=== PATIENT | female | born 1960 | race African-American/Black ===

== ENCOUNTER 2017-11-22 12:19 | Observation (INO) ==
[2017-11-22] MEDS ORDERED: FUROSEMIDE 40 MG/4 ML VIAL IV STA (12:40)
[2017-11-22] MEDS ORDERED: ALBUTEROL/IPRATROPIUM 3 ML NEB RESP TX STA (12:41)
[2017-11-22 13:12] LABS: Basophils % 0.7 % (0.0-0.8); Hematocrit 39.4 VOL% (35.7-47.0); Hemoglobin 12.3 GM/DL (12.0-16.0); Immature Granulocytes % 0.7 %; Immature Granulocytes Absolute 0.03 #; Lymphocytes # 0.9 10*3/uL (1.4-4.0); Mean Corpuscular HGB Conc 31.2 GM/DL (32-36); Mean Corpuscular Hemoglobin 25 PG (27-34); Mean Corpuscular Volume 79.1 FL (87-102); Mean Platelet Volume 11.2 FL (9.6-12.0); Monocytes # 0.6 10*3/uL (0.11-0.8); Monocytes % 13.1 % (1.7-12.7); Neutrophils # 2.8 10*3/uL (1.4-7.4); Neutrophils % 65.5 % (38.7-73.9); Platelet Count 204 T/CUMM (130-400); Red Blood Count 4.98 MC/CUMM (3.8-5.5); Red Cell Distribution Width 20.3 % (9.3-17.3); White Blood Count 4.3 T/CUMM (4-12)
[2017-11-22 13:44] LABS: Albumin 2.8 G/DL (3.4-5.0); Bilirubin,Total 0.8 MG/DL (0.2-1.0); Calcium 8.6 MG/DL (8.5-10.1); Potassium 2.8 MMOL/L (3.5-5.1); Total Protein 8.2 G/DL (6.4-8.3)
[2017-11-22 13:49] LABS: INR 1.6; PT Patient Result 16.9 SECS
[2017-11-22] MEDS ORDERED: POTASSIUM CHLORIDE 20 MEQ TABLET PO STA (14:03)
[2017-11-22] MEDS ORDERED: DILTIAZEM 50 MG/10 ML VIAL IV STA ×2 (14:35→15:38)
[2017-11-22] MEDS ORDERED: DILTIAZEM 25 MG/5 ML VIAL IV ONE (15:35)
[2017-11-22] MEDS ORDERED: ONDANSETRON 4 MG/2 ML VIAL IV PRN (15:38)
[2017-11-22] MEDS ORDERED: ACETAMINOPHEN 325 MG TABLET PO PRN (15:38)
[2017-11-22] MEDS ORDERED: ALBUTEROL/IPRATROPIUM 3 ML NEB RESP TX PRN (15:40)
[2017-11-22] MEDS ORDERED: DILTIAZEM 25 MG/5 ML VIAL IV STA (15:45)
[2017-11-22] MEDS ORDERED: ALBUTEROL 2.5 MG/3 ML NEB RESP TX PRN (15:47)
[2017-11-22] MEDS ORDERED: CARISOPRODOL 350 MG TABLET PO PRN (15:47)
[2017-11-22 16:17] LABS: Lactic Acid 2.9 MMOL/L (0.4-2.0)
[2017-11-22] MEDS ORDERED: DILTIAZEM 50 MG/10 ML VIAL IV PRN (16:58)
[2017-11-22] MEDS ORDERED: WARFARIN 7.5 MG TABLET PO SCH (18:00)
[2017-11-22] MEDS: ENOXAPARIN 100 MG/ML SYRINGE SUBCUT SCH (18:05)
[2017-11-22] MEDS: POTASSIUM CHLORIDE 20 MEQ TABLET PO PRN ×2 (18:05→21:48)
[2017-11-22] MEDS: ASPIRIN EC 81 MG TABLET PO SCH (18:05)
[2017-11-22 18:18] LABS: Apearance,Urine Slightly Hazy (Clear); Bilirubin,Urine Negative (Negative); Blood, Urine Negative (Negative); Glucose,Urine (UA) Negative (Negative); Hyaline Casts,Urine 2 /LPF (0-3); Ketones,Urine Negative (Negative); Nitrite,Urine Negative (Negative); Protein,Urine Negative; RBC,Urine 4 /HPF (0-4); Squamous Epithelial Cell,Urine Occasional /HPF (0-10); Urine Color Yellow (Yellow); Urine Specific Gravity 1.005 (1.001-1.035); Urine Urobilinogen < 2.0 EU/DL (0.2-1.0); WBC,Urine 11 /HPF (0-6)
[2017-11-22] MEDS: BUDESONIDE 0.5 MG/2 ML NEB RESP TX SCH (19:06)
[2017-11-22] MEDS: FUROSEMIDE 40 MG TABLET PO SCH (21:48)
[2017-11-23] MEDS: POTASSIUM CHLORIDE 20 MEQ TABLET PO PRN ×3 (00:23→05:42)
[2017-11-23 04:16] LABS: INR 1.7; PT Patient Result 17.4 SECS
[2017-11-23 04:23] LABS: Basophils % 0.6 % (0.0-0.8); Eosinophils % 0.8 % (0.00-10.9); Hematocrit 37.2 VOL% (35.7-47.0); Hemoglobin 11.8 GM/DL (12.0-16.0); Immature Granulocytes % 0.8 %; Immature Granulocytes Absolute 0.04 #; Lymphocytes # 1.4 10*3/uL (1.4-4.0); Lymphocytes % 28.1 % (21.3-54.2); Mean Corpuscular HGB Conc 31.7 GM/DL (32-36); Mean Corpuscular Hemoglobin 25 PG (27-34); Mean Corpuscular Volume 77.8 FL (87-102); Mean Platelet Volume 11.8 FL (9.6-12.0); Monocytes # 0.7 10*3/uL (0.11-0.8); Monocytes % 14.6 % (1.7-12.7); Neutrophils # 2.7 10*3/uL (1.4-7.4); Neutrophils % 55.1 % (38.7-73.9); Platelet Count 204 T/CUMM (130-400); Red Blood Count 4.78 MC/CUMM (3.8-5.5); Red Cell Distribution Width 20.3 % (9.3-17.3); White Blood Count 4.8 T/CUMM (4-12)
[2017-11-23 04:51] LABS: Calcium 8.1 MG/DL (8.5-10.1); Thyroid Stimulating Hormone 1.3 uIU/ml (0.358-3.74)
[2017-11-23] MEDS: ENOXAPARIN 100 MG/ML SYRINGE SUBCUT SCH (05:42)
[2017-11-23] MEDS: BUDESONIDE 0.5 MG/2 ML NEB RESP TX SCH (07:42)
[2017-11-23] MEDS ORDERED: cefTRIAXone 1,000 MG in SYRINGE 1 EACH IV SCH (08:00)
[2017-11-23] MEDS ORDERED: POTASSIUM CHLORIDE 20 MEQ TABLET PO SCH ×2 (09:00)
[2017-11-23] MEDS ORDERED: cloNIDine 0.1 MG TABLET PO SCH (09:00)
[2017-11-23] MEDS ORDERED: DILTIAZEM CD 180 MG CAPSULE PO SCH (09:00)
[2017-11-23] MEDS ORDERED: AMIODARONE 200 MG TABLET PO SCH (09:00)
[2017-11-23] MEDS ORDERED: PANTOPRAZOLE 40 MG TABLET PO SCH (09:00)
[2017-11-23] MEDS ORDERED: predniSONE 20 MG TABLET PO SCH (09:00)
[2017-11-23] MEDS: ASPIRIN EC 81 MG TABLET PO SCH (09:48)
[2017-11-23] MEDS: FUROSEMIDE 40 MG TABLET PO SCH (09:48)
[2017-11-23 12:22] VITALS: BP 146/92
[2017-11-23] MEDS ORDERED: WARFARIN 10 MG TABLET PO SCH (18:00)
== END 2017-11-23 15:53 | disposition home health service (06) ==
LOC: N.ED 12:19 → N.EDINP 12:19 → N.2W 16:37 → N.TELES 17:28
PROVIDERS: ADMIT Internal Medicine; ATTEND Internal Medicine

== ENCOUNTER 2017-11-30 15:35 | Inpatient (IN) ==
[2017-11-30] MEDS ORDERED: methylPREDNISolone SOD SUC 125 MG/2 ML VIAL IV STA (16:03)
[2017-11-30] MEDS ORDERED: DILTIAZEM 50 MG/10 ML VIAL IV STA (16:03)
[2017-11-30] MEDS ORDERED: AZITHROMYCIN INJ 500 MG in SODIUM CHLORIDE 0.9% 250 ML IV STA (16:03)
[2017-11-30] MEDS ORDERED: FUROSEMIDE 100 MG/10 ML VIAL IV STA (16:03)
[2017-11-30] MEDS ORDERED: ONDANSETRON 4 MG/2 ML VIAL IV STA (16:03)
[2017-11-30 16:20] LABS: Hematocrit 39.8 VOL% (35.7-47.0); Hemoglobin 12.3 GM/DL (12.0-16.0); Immature Granulocytes % 1.8 %; Immature Granulocytes Absolute 0.07 #; Lymphocytes # 0.9 10*3/uL (1.4-4.0); Lymphocytes % 23.2 % (21.3-54.2); Mean Corpuscular HGB Conc 30.9 GM/DL (32-36); Mean Corpuscular Hemoglobin 25 PG (27-34); Mean Corpuscular Volume 79.3 FL (87-102); Mean Platelet Volume 11.3 FL (9.6-12.0); Monocytes # 0.8 10*3/uL (0.11-0.8); Monocytes % 20.9 % (1.7-12.7); Neutrophils # 2.1 10*3/uL (1.4-7.4); Neutrophils % 53.1 % (38.7-73.9); Platelet Count 203 T/CUMM (130-400); Red Blood Count 5.02 MC/CUMM (3.8-5.5); Red Cell Distribution Width 20.9 % (9.3-17.3); White Blood Count 3.9 T/CUMM (4-12)
[2017-11-30] MEDS ORDERED: ALBUTEROL 2.5 MG/3 ML NEB RESP TX SCH (16:30)
[2017-11-30 16:31] LABS: INR 1.5; PT Patient Result 16.1 SECS; Partial Thromboplastin Time 36.6 SECS (0-40)
[2017-11-30 16:41] LABS: Hypochromasia 1+; Lymphocytes 18 % (20-55); Platelet Estimate Adequate; Segmented Neutrophils 61 % (50-85); Total Cells Counted 100
[2017-11-30 16:43] LABS: Alanine Aminotransferase 23 U/L (13-56); Albumin 2.8 G/DL (3.4-5.0); Alkaline Phosphatase 176 U/L (45-117); Aspartate Amino Transferase 28 U/L (0-37); Blood Urea Nitrogen 8 MG/DL (7-18); Calcium 8.5 MG/DL (8.5-10.1); Glucose 97 MG/DL (74-106); Osmolality,Calculated 274.5 MOS/KG (273-304); Potassium 3.4 MMOL/L (3.5-5.1); Sodium 139 MMOL/L (136-145); Total Protein 8.4 G/DL (6.4-8.3); Troponin I 0.027 NG/ML (0.00-0.045)
[2017-11-30] MEDS ORDERED: DILTIAZEM 25 MG/5 ML VIAL IV STA (17:25)
[2017-11-30] MEDS ORDERED: ACETAMINOPHEN 325 MG TABLET PO PRN (17:57)
[2017-11-30] MEDS ORDERED: ONDANSETRON 4 MG/2 ML VIAL IV PRN (17:57)
[2017-11-30] MEDS ORDERED: ALBUTEROL 2.5 MG/3 ML NEB RESP TX PRN (17:59)
[2017-11-30] MEDS ORDERED: CARISOPRODOL 350 MG TABLET PO PRN (17:59)
[2017-11-30] MEDS: ALBUTEROL/IPRATROPIUM 3 ML NEB RESP TX SCH (20:30)
[2017-11-30] MEDS: BUDESONIDE 0.25 MG/2 ML NEB RESP TX SCH (20:30)
[2017-11-30] MEDS: WARFARIN 10 MG TABLET PO SCH (21:12)
[2017-12-01] MEDS: ALBUTEROL/IPRATROPIUM 3 ML NEB RESP TX SCH ×4 (00:08→19:23)
[2017-12-01] MEDS ORDERED: METOPROLOL TARTRATE 5 MG/5 ML VIAL IV ONE (03:36)
[2017-12-01 04:30] LABS: Hemoglobin 12.2 GM/DL (12.0-16.0); Immature Granulocytes % 1.2 %; Immature Granulocytes Absolute 0.03 #; Lymphocytes # 0.3 10*3/uL (1.4-4.0); Lymphocytes % 11.6 % (21.3-54.2); Mean Corpuscular HGB Conc 31.3 GM/DL (32-36); Mean Corpuscular Hemoglobin 25 PG (27-34); Mean Corpuscular Volume 78.3 FL (87-102); Mean Platelet Volume 11.5 FL (9.6-12.0); Monocytes % 1.6 % (1.7-12.7); NRBC # 0.02 10*3/uL; Neutrophils # 2.2 10*3/uL (1.4-7.4); Neutrophils % 85.6 % (38.7-73.9); Platelet Count 203 T/CUMM (130-400); Red Blood Count 4.98 MC/CUMM (3.8-5.5); Red Cell Distribution Width 20.6 % (9.3-17.3); White Blood Count 2.5 T/CUMM (4-12)
[2017-12-01 04:47] LABS: Calcium 8.2 MG/DL (8.5-10.1); Osmolality,Calculated 281.3 MOS/KG (273-304); Potassium 3.6 MMOL/L (3.5-5.1)
[2017-12-01] MEDS: BUDESONIDE 0.25 MG/2 ML NEB RESP TX SCH ×2 (07:06→19:23)
[2017-12-01] MEDS: FUROSEMIDE 40 MG/4 ML VIAL IV SCH ×2 (08:20→16:00)
[2017-12-01 08:33] LABS: ABG Base Excess 1.8 MMOL/L (-2.5-2.5); ABG HCO3 24.4 MMOL/L (20-26); ABG Oxygen Saturation 17.6 % (95-100); ABG PCO2 59.4 MM HG (35-48); ABG PH 7.307 (7.35-7.45); ABG TCO2 27.2 MMOL/L (23-27)
[2017-12-01 08:35] LABS: ABG PO2 19.3 MM HG (80-95)
[2017-12-01] MEDS ORDERED: AMIODARONE 200 MG TABLET PO SCH (09:00)
[2017-12-01] MEDS ORDERED: cloNIDine 0.1 MG TABLET PO SCH (09:00)
[2017-12-01 09:04] LABS: ABG Base Excess 1.3 MMOL/L (-2.5-2.5); ABG HCO3 25.1 MMOL/L (20-26); ABG Oxygen Saturation 77.4 % (95-100); ABG PO2 48.4 MM HG (80-95); ABG TCO2 24.1 MMOL/L (23-27)
[2017-12-01] MEDS: POTASSIUM CHLORIDE 20 MEQ TABLET PO SCH (09:42)
[2017-12-01] MEDS: ASPIRIN EC 81 MG TABLET PO SCH (09:42)
[2017-12-01] MEDS: PANTOPRAZOLE 40 MG TABLET PO SCH (09:42)
[2017-12-01] MEDS: methylPREDNISolone SOD SUC 125 MG/2 ML VIAL IV SCH ×2 (09:43→16:50)
[2017-12-01] MEDS: DILTIAZEM CD 180 MG CAPSULE PO SCH (09:43)
[2017-12-01] MEDS ORDERED: hydrALAZINE 20 MG/1 ML VIAL IV PRN (11:33)
[2017-12-01] MEDS ORDERED: DILTIAZEM 50 MG/10 ML VIAL IV ONE (13:02)
[2017-12-01] MEDS ORDERED: ENOXAPARIN 80 MG/0.8 ML SYRINGE SUBCUT SCH (15:00)
[2017-12-01] MEDS: HEPARIN DRIP 25,000 UNITS/500 ML PREMIX IV SCH (16:00)
[2017-12-01] MEDS: METOPROLOL TARTRATE 25 MG TABLET PO SCH ×2 (16:25→23:31)
[2017-12-01] MEDS: WARFARIN 10 MG TABLET PO SCH (18:29)
[2017-12-01] MEDS: cloNIDine 0.1 MG TABLET PO SCH (21:33)
[2017-12-01] MEDS: DOCUSATE SODIUM 100 MG CAPSULE PO SCH (21:37)
[2017-12-01 22:16] LABS: INR 1.9; PT Patient Result 19.7 SECS
[2017-12-01 22:26] LABS: Partial Thromboplastin Time 71.7 SECS (0-40)
[2017-12-02] MEDS: ALBUTEROL/IPRATROPIUM 3 ML NEB RESP TX SCH ×4 (00:10→19:07)
[2017-12-02] MEDS: methylPREDNISolone SOD SUC 125 MG/2 ML VIAL IV SCH ×3 (01:39→17:00)
[2017-12-02] MEDS: METOPROLOL TARTRATE 25 MG TABLET PO SCH (05:09)
[2017-12-02 06:01] LABS: Hematocrit 39.3 VOL% (35.7-47.0); Hemoglobin 12.3 GM/DL (12.0-16.0); Immature Granulocytes % 0.7 %; Immature Granulocytes Absolute 0.04 #; Lymphocytes # 0.5 10*3/uL (1.4-4.0); Lymphocytes % 8.9 % (21.3-54.2); Mean Corpuscular HGB Conc 31.3 GM/DL (32-36); Mean Corpuscular Hemoglobin 24 PG (27-34); Mean Platelet Volume 11.6 FL (9.6-12.0); Monocytes # 0.3 10*3/uL (0.11-0.8); Monocytes % 5.7 % (1.7-12.7); NRBC # 0.08 10*3/uL; Neutrophils % 84.7 % (38.7-73.9); Platelet Count 197 T/CUMM (130-400); Red Blood Count 5.04 MC/CUMM (3.8-5.5); Red Cell Distribution Width 21.1 % (9.3-17.3); White Blood Count 5.9 T/CUMM (4-12)
[2017-12-02 06:09] LABS: INR 2.4
[2017-12-02 06:18] LABS: PT Patient Result 24.4 SECS; Partial Thromboplastin Time 80.9 SECS (0-40)
[2017-12-02 06:26] LABS: Calcium 7.7 MG/DL (8.5-10.1); Calcium 8.2 MG/DL (8.5-10.1); Osmolality,Calculated 280.8 MOS/KG (273-304); Osmolality,Calculated 281.7 MOS/KG (273-304); Potassium 4.9 MMOL/L (3.5-5.1)
[2017-12-02] MEDS: BUDESONIDE 0.25 MG/2 ML NEB RESP TX SCH ×2 (07:49→19:07)
[2017-12-02] MEDS: DEXTROSE 5% NACL 0.9% 1,000 ML IV SCH (07:50)
[2017-12-02 07:56] LABS: ABG Base Excess -1.7 MMOL/L (-2.5-2.5); ABG HCO3 22.9 MMOL/L (20-26); ABG Oxygen Saturation 93.7 % (95-100); ABG PCO2 40.7 MM HG (35-48); ABG PH 7.369 (7.35-7.45); ABG PO2 79.7 MM HG (80-95); ABG TCO2 20.8 MMOL/L (23-27)
[2017-12-02] MEDS: FUROSEMIDE 40 MG/4 ML VIAL IV SCH (08:15)
[2017-12-02] MEDS: POTASSIUM CHLORIDE 20 MEQ TABLET PO SCH (09:00)
[2017-12-02] MEDS: cloNIDine 0.1 MG TABLET PO SCH ×2 (09:40→21:26)
[2017-12-02] MEDS: DILTIAZEM CD 180 MG CAPSULE PO SCH (09:40)
[2017-12-02] MEDS: ASPIRIN EC 81 MG TABLET PO SCH (09:40)
[2017-12-02] MEDS: DOCUSATE SODIUM 100 MG CAPSULE PO SCH ×2 (09:40→21:26)
[2017-12-02] MEDS: AMIODARONE 200 MG TABLET PO SCH ×2 (09:40→21:26)
[2017-12-02] MEDS: PANTOPRAZOLE 40 MG TABLET PO SCH (09:41)
[2017-12-02] MEDS: HEPARIN DRIP 25,000 UNITS/500 ML PREMIX IV SCH (17:10)
[2017-12-02] MEDS: WARFARIN 5 MG TABLET PO SCH (18:00)
[2017-12-03] MEDS: ALBUTEROL/IPRATROPIUM 3 ML NEB RESP TX SCH ×4 (01:06→19:59)
[2017-12-03] MEDS: methylPREDNISolone SOD SUC 125 MG/2 ML VIAL IV SCH ×3 (01:11→16:46)
[2017-12-03 02:55] LABS: ABG Base Excess -2.4 MMOL/L (-2.5-2.5); ABG HCO3 22.3 MMOL/L (20-26); ABG Oxygen Saturation 94.2 % (95-100); ABG PCO2 40.7 MM HG (35-48); ABG PH 7.358 (7.35-7.45); ABG PO2 82.3 MM HG (80-95); ABG TCO2 20.5 MMOL/L (23-27); Allen Test Positive
[2017-12-03] MEDS: DEXTROSE 5% NACL 0.9% 1,000 ML IV SCH ×2 (03:01→23:48)
[2017-12-03 03:44] LABS: Hematocrit 36.2 VOL% (35.7-47.0); Hemoglobin 11.3 GM/DL (12.0-16.0); Immature Granulocytes % 0.9 %; Immature Granulocytes Absolute 0.06 #; Lymphocytes # 0.3 10*3/uL (1.4-4.0); Lymphocytes % 4.9 % (21.3-54.2); Mean Corpuscular HGB Conc 31.2 GM/DL (32-36); Mean Corpuscular Hemoglobin 25 PG (27-34); Mean Corpuscular Volume 78.9 FL (87-102); Mean Platelet Volume 11.2 FL (9.6-12.0); Monocytes # 0.3 10*3/uL (0.11-0.8); Monocytes % 4.7 % (1.7-12.7); NRBC # 0.07 10*3/uL; Neutrophils # 6.3 10*3/uL (1.4-7.4); Neutrophils % 89.5 % (38.7-73.9); Platelet Count 182 T/CUMM (130-400); Red Blood Count 4.59 MC/CUMM (3.8-5.5); Red Cell Distribution Width 20.3 % (9.3-17.3)
[2017-12-03 03:54] LABS: INR 2.8
[2017-12-03 03:55] LABS: PT Patient Result 28.7 SECS
[2017-12-03 04:03] LABS: Osmolality,Calculated 285.7 MOS/KG (273-304); Potassium 4.4 MMOL/L (3.5-5.1)
[2017-12-03 04:41] LABS: Anisocytosis 1+; Band Neutrophils 3 % (0-10); Hypochromasia 2+; Lymphocytes 6 % (20-55); Macrocytosis 1+; Nucleated Red Blood Cells 1 (0-5); Platelet Estimate Normal; Segmented Neutrophils 88 % (50-85); Target Cells 2+; Total Cells Counted 100
[2017-12-03] MEDS: BUDESONIDE 0.25 MG/2 ML NEB RESP TX SCH ×2 (07:56→19:59)
[2017-12-03] MEDS: DILTIAZEM CD 180 MG CAPSULE PO SCH (08:44)
[2017-12-03] MEDS: DOCUSATE SODIUM 100 MG CAPSULE PO SCH ×2 (08:45→20:42)
[2017-12-03] MEDS: ASPIRIN EC 81 MG TABLET PO SCH (08:45)
[2017-12-03] MEDS: cloNIDine 0.1 MG TABLET PO SCH (08:45)
[2017-12-03] MEDS: AMIODARONE 200 MG TABLET PO SCH ×2 (08:45→20:42)
[2017-12-03] MEDS: PANTOPRAZOLE 40 MG TABLET PO SCH (08:45)
[2017-12-03] MEDS: POTASSIUM CHLORIDE 20 MEQ TABLET PO SCH (08:45)
[2017-12-03] MEDS: METOPROLOL TARTRATE 25 MG TABLET PO SCH ×2 (09:31→20:43)
[2017-12-03] MEDS: WARFARIN 5 MG TABLET PO SCH (17:32)
[2017-12-04] MEDS: ALBUTEROL/IPRATROPIUM 3 ML NEB RESP TX SCH ×4 (00:45→18:40)
[2017-12-04] MEDS: methylPREDNISolone SOD SUC 125 MG/2 ML VIAL IV SCH ×3 (01:26→16:54)
[2017-12-04 04:33] LABS: INR 3.6
[2017-12-04 04:36] LABS: Calcium 8.4 MG/DL (8.5-10.1); Osmolality,Calculated 285.8 MOS/KG (273-304); PT Patient Result 36.1 SECS; Potassium 4.8 MMOL/L (3.5-5.1)
[2017-12-04] MEDS: BUDESONIDE 0.25 MG/2 ML NEB RESP TX SCH ×2 (07:27→18:40)
[2017-12-04] MEDS: DILTIAZEM CD 180 MG CAPSULE PO SCH (08:42)
[2017-12-04] MEDS: ASPIRIN EC 81 MG TABLET PO SCH (08:44)
[2017-12-04] MEDS: AMIODARONE 200 MG TABLET PO SCH ×2 (08:44→20:55)
[2017-12-04] MEDS: DOCUSATE SODIUM 100 MG CAPSULE PO SCH ×2 (08:44→20:54)
[2017-12-04] MEDS: METOPROLOL TARTRATE 25 MG TABLET PO SCH ×2 (08:44→20:55)
[2017-12-04] MEDS: POTASSIUM CHLORIDE 20 MEQ TABLET PO SCH (08:44)
[2017-12-04 09:33] LABS: Albumin (SPE) 3.8 G/DL (3.2-5.3); Total Protein (Chem) 8.2 G/DL (6.4-8.3)
[2017-12-04 09:34] LABS: Albumin (SPE) Rel % 46.1 %; Alpha 1 (SPE) 0.3 G/DL (0.1-0.4); Alpha 1 (SPE) Rel % 3.3 %; Alpha 2 (SPE) 0.6 G/DL (0.4-1.0); Alpha 2 (SPE) Rel % 6.8 %; Beta (SPE) 0.7 G/DL (0.5-1.1); Beta (SPE) Rel % 8.5 %; Gamma (SPE) 2.9 G/DL (0.7-1.7); Gamma (SPE) Rel % 35.3 %
[2017-12-04] MEDS: PANTOPRAZOLE 40 MG TABLET PO SCH (12:22)
[2017-12-04] MEDS: WARFARIN 5 MG TABLET PO SCH ×2 (16:54→17:19)
[2017-12-04] MEDS: DEXTROSE 5% NACL 0.9% 1,000 ML IV SCH (19:38)
[2017-12-04 21:26] LABS: Apearance,Urine CLEAR (Clear); Bacteria,Urine Few /HPF (Few); Bilirubin,Urine Negative (Negative); Blood, Urine Negative (Negative); Glucose,Urine (UA) Negative (Negative); Granular Casts,Urine 1 /LPF (0-1); Hyaline Casts,Urine 11 /LPF (0-3); Ketones,Urine Negative (Negative); Mucus,Urine Occasional /LPF (Occasional); Nitrite,Urine Negative (Negative); Protein,Urine 30 MG/DL; RBC,Urine 1 /HPF (0-4); Squamous Epithelial Cell,Urine Occasional /HPF (0-10); Urine Color Yellow (Yellow); Urine Specific Gravity 1.015 (1.001-1.035); Urine Urobilinogen < 2.0 EU/DL (0.2-1.0); WBC,Urine 7 /HPF (0-6)
[2017-12-05] MEDS: methylPREDNISolone SOD SUC 125 MG/2 ML VIAL IV SCH ×3 (01:12→17:04)
[2017-12-05] MEDS: ALBUTEROL/IPRATROPIUM 3 ML NEB RESP TX SCH ×4 (03:34→20:08)
[2017-12-05 04:18] LABS: Hematocrit 36.5 VOL% (35.7-47.0); Hemoglobin 11.6 GM/DL (12.0-16.0); Immature Granulocytes % 0.6 %; Immature Granulocytes Absolute 0.05 #; Lymphocytes # 0.4 10*3/uL (1.4-4.0); Lymphocytes % 4.4 % (21.3-54.2); Mean Corpuscular HGB Conc 31.8 GM/DL (32-36); Mean Corpuscular Hemoglobin 25 PG (27-34); Mean Corpuscular Volume 77.2 FL (87-102); Mean Platelet Volume 11.4 FL (9.6-12.0); Monocytes # 0.3 10*3/uL (0.11-0.8); Monocytes % 3.6 % (1.7-12.7); NRBC # 0.11 10*3/uL; Neutrophils # 7.6 10*3/uL (1.4-7.4); Neutrophils % 91.4 % (38.7-73.9); Platelet Count 203 T/CUMM (130-400); Red Blood Count 4.73 MC/CUMM (3.8-5.5); Red Cell Distribution Width 19.9 % (9.3-17.3); White Blood Count 8.4 T/CUMM (4-12)
[2017-12-05 04:56] LABS: Lymphocytes 6 % (20-55); Platelet Estimate Normal; Segmented Neutrophils 94 % (50-85); Target Cells Few; Total Cells Counted 100
[2017-12-05 04:57] LABS: Hypochromasia Slight; Polychromasia Few
[2017-12-05 05:00] LABS: Risk Ratio 2.42
[2017-12-05 05:01] LABS: Calcium 8.3 MG/DL (8.5-10.1); Osmolality,Calculated 286.8 MOS/KG (273-304); Potassium 5.5 MMOL/L (3.5-5.1)
[2017-12-05] MEDS: BUDESONIDE 0.25 MG/2 ML NEB RESP TX SCH ×2 (07:45→20:08)
[2017-12-05] MEDS: DOCUSATE SODIUM 100 MG CAPSULE PO SCH ×2 (08:38→20:47)
[2017-12-05] MEDS: DILTIAZEM CD 180 MG CAPSULE PO SCH (08:38)
[2017-12-05] MEDS: POTASSIUM CHLORIDE 20 MEQ TABLET PO SCH (08:38)
[2017-12-05] MEDS: METOPROLOL TARTRATE 25 MG TABLET PO SCH (08:39)
[2017-12-05] MEDS: PANTOPRAZOLE 40 MG TABLET PO SCH (08:39)
[2017-12-05] MEDS: ASPIRIN EC 81 MG TABLET PO SCH (08:39)
[2017-12-05] MEDS: AMIODARONE 200 MG TABLET PO SCH ×2 (08:39→20:47)
[2017-12-05] MEDS ORDERED: METOPROLOL TARTRATE 25 MG TABLET PO ONE (10:58)
[2017-12-05] MEDS: DEXTROSE 5% NACL 0.9% 1,000 ML IV SCH (16:14)
[2017-12-05] MEDS: WARFARIN 5 MG TABLET PO SCH (20:23)
[2017-12-05] MEDS: METOPROLOL TARTRATE 50 MG TABLET PO SCH (20:47)
[2017-12-06] MEDS: methylPREDNISolone SOD SUC 125 MG/2 ML VIAL IV SCH ×2 (00:41→08:37)
[2017-12-06] MEDS: ALBUTEROL/IPRATROPIUM 3 ML NEB RESP TX SCH ×2 (01:03→07:49)
[2017-12-06 04:21] LABS: Hematocrit 35.3 VOL% (35.7-47.0); Hemoglobin 11.3 GM/DL (12.0-16.0); Immature Granulocytes % 1.2 %; Lymphocytes # 0.3 10*3/uL (1.4-4.0); Lymphocytes % 3.6 % (21.3-54.2); Mean Corpuscular Hemoglobin 25 PG (27-34); Mean Corpuscular Volume 78.1 FL (87-102); Mean Platelet Volume 11.5 FL (9.6-12.0); Monocytes # 0.3 10*3/uL (0.11-0.8); Monocytes % 3.6 % (1.7-12.7); NRBC # 0.14 10*3/uL; Neutrophils # 7.6 10*3/uL (1.4-7.4); Neutrophils % 91.6 % (38.7-73.9); Platelet Count 210 T/CUMM (130-400); Red Blood Count 4.52 MC/CUMM (3.8-5.5); White Blood Count 8.3 T/CUMM (4-12)
[2017-12-06 04:37] LABS: INR 2.7
[2017-12-06 04:42] LABS: PT Patient Result 27.2 SECS
[2017-12-06 04:52] LABS: Calcium 8.3 MG/DL (8.5-10.1); Osmolality,Calculated 293.5 MOS/KG (273-304); Potassium 5.5 MMOL/L (3.5-5.1)
[2017-12-06 05:04] LABS: Band Neutrophils 2 % (0-10); Hypochromasia 2+; Lymphocytes 5 % (20-55); Ovalocytes 1+; Platelet Estimate Normal; Segmented Neutrophils 90 % (50-85); Target Cells 2+; Total Cells Counted 100
[2017-12-06] MEDS: BUDESONIDE 0.25 MG/2 ML NEB RESP TX SCH (07:49)
[2017-12-06 08:22] VITALS: BP 139/89
[2017-12-06] MEDS: ASPIRIN EC 81 MG TABLET PO SCH (08:36)
[2017-12-06] MEDS: PANTOPRAZOLE 40 MG TABLET PO SCH (08:36)
[2017-12-06] MEDS: DILTIAZEM CD 180 MG CAPSULE PO SCH (08:36)
[2017-12-06] MEDS: POTASSIUM CHLORIDE 20 MEQ TABLET PO SCH (08:36)
[2017-12-06] MEDS: DOCUSATE SODIUM 100 MG CAPSULE PO SCH (08:36)
[2017-12-06] MEDS: AMIODARONE 200 MG TABLET PO SCH (08:37)
[2017-12-06] MEDS: METOPROLOL TARTRATE 50 MG TABLET PO SCH (08:37)
== END 2017-12-06 15:27 | disposition home health service (06) | DRG 140 ==
LOC: EDBD → EDUNIT# → N.ED 15:35 → N.EDINP 15:35 → N.TELEN 19:59 → N.ICU 12-01 09:05 → SUATTDRO 12-01 10:04 → N.TELES 12-03 12:42
PROVIDERS: ADMIT Internal Medicine Geriatric Medicine; ATTEND Internal Medicine

== ENCOUNTER 2017-12-09 15:02 | Inpatient (IN) ==
[2017-12-09] MEDS ORDERED: ONDANSETRON 4 MG/2 ML VIAL IV STA (15:27)
[2017-12-09] MEDS ORDERED: methylPREDNISolone SOD SUC 125 MG/2 ML VIAL IV STA (15:27)
[2017-12-09] MEDS ORDERED: AZITHROMYCIN INJ 500 MG in SODIUM CHLORIDE 0.9% 250 ML IV STA (15:27)
[2017-12-09] MEDS ORDERED: FUROSEMIDE 100 MG/10 ML VIAL IV STA (15:27)
[2017-12-09] MEDS ORDERED: ALBUTEROL 2.5 MG/3 ML NEB RESP TX SCH (15:30)
[2017-12-09 15:53] LABS: Basophils % 0.2 % (0.0-0.8); Hematocrit 39.9 VOL% (35.7-47.0); Hemoglobin 12.6 GM/DL (12.0-16.0); Lymphocytes # 0.7 10*3/uL (1.4-4.0); Lymphocytes % 5.7 % (21.3-54.2); Mean Corpuscular HGB Conc 31.6 GM/DL (32-36); Mean Corpuscular Hemoglobin 25 PG (27-34); Mean Platelet Volume 10.8 FL (9.6-12.0); Monocytes % 8.2 % (1.7-12.7); Neutrophils # 10.3 10*3/uL (1.4-7.4); Neutrophils % 81.9 % (38.7-73.9); Platelet Count 262 T/CUMM (130-400); Red Blood Count 4.99 MC/CUMM (3.8-5.5); Red Cell Distribution Width 21.2 % (9.3-17.3); White Blood Count 12.6 T/CUMM (4-12)
[2017-12-09 16:03] LABS: INR 1.9; PT Patient Result 19.4 SECS; Partial Thromboplastin Time 35.2 SECS (0-40)
[2017-12-09 16:17] LABS: Albumin 2.8 G/DL (3.4-5.0); Bilirubin,Total 0.9 MG/DL (0.2-1.0); CKMB % 6.6 %; Calcium 7.7 MG/DL (8.5-10.1); Osmolality,Calculated 284.7 MOS/KG (273-304); Total Protein 7.6 G/DL (6.4-8.3); Troponin I 0.036 NG/ML (0.00-0.045)
[2017-12-09 16:19] LABS: Potassium 6.1 MMOL/L (3.5-5.1)
[2017-12-09] MEDS ORDERED: CALCIUM CHLORIDE 1,000 MG/10 ML SYRINGE IV STA (16:29)
[2017-12-09] MEDS ORDERED: INSULIN REGULAR 100 UNIT/ML IV STA (16:29)
[2017-12-09] MEDS ORDERED: DEXTROSE 50% 25 GM/50 ML VIAL IV STA (16:29)
[2017-12-09 17:04] LABS: Apearance,Urine CLEAR (Clear); Bacteria,Urine Occasional /HPF (Few); Bilirubin,Urine Negative (Negative); Blood, Urine Negative (Negative); Glucose,Urine (UA) Negative (Negative); Hyaline Casts,Urine 7 /LPF (0-3); Ketones,Urine Negative (Negative); Mucus,Urine Occasional /LPF (Occasional); Nitrite,Urine Negative (Negative); Protein,Urine 30 MG/DL; RBC,Urine 2 /HPF (0-4); Squamous Epithelial Cell,Urine Occasional /HPF (0-10); Urine Color Yellow (Yellow); Urine Specific Gravity 1.011 (1.001-1.035); WBC,Urine 2 /HPF (0-6)
[2017-12-09] MEDS ORDERED: ATROPINE 1 MG/10 ML SYRINGE IV STA (17:04)
[2017-12-09] MEDS ORDERED: ATROPINE 1 MG/10 ML SYRINGE ONE (17:04)
[2017-12-09] MEDS ORDERED: SODIUM BICARBONATE 50 MEQ/50 ML VIAL IV STA (17:06)
[2017-12-09] MEDS ORDERED: EPINEPHrine 1 MG/10 ML SYRINGE IV STA (17:06)
[2017-12-09] MEDS ORDERED: ETOMIDATE 20 MG/10 ML VIAL IV STA (17:08)
[2017-12-09] MEDS ORDERED: ROCURONIUM 100 MG/10 ML VIAL IV STA (17:08)
[2017-12-09] MEDS ORDERED: ROCURONIUM 100 MG/10 ML VIAL IV ONE (17:11)
[2017-12-09] MEDS ORDERED: ETOMIDATE 20 MG/10 ML VIAL IV ONE (17:11)
[2017-12-09] MEDS ORDERED: ALBUTEROL 2.5 MG/3 ML NEB RESP TX PRN ×2 (17:30→18:20)
[2017-12-09] MEDS ORDERED: ONDANSETRON 4 MG/2 ML VIAL IV PRN (17:30)
[2017-12-09] MEDS ORDERED: PROPOFOL 1,000 MG/100 ML BOTTLE IV SCH (17:30)
[2017-12-09] MEDS ORDERED: DILTIAZEM 30 MG TABLET PO PRN (18:24)
[2017-12-09] MEDS ORDERED: FUROSEMIDE 100 MG/10 ML VIAL IV ONE (18:30)
[2017-12-09] MEDS: SODIUM POLYSTYRENE SULFATE 15 GM/60 ML BOTTLE PER TUBE SCH (18:55)
[2017-12-09 19:12] LABS: ABG Base Excess -10.4 MMOL/L (-2.5-2.5); ABG HCO3 17.9 MMOL/L (20-26); ABG Oxygen Saturation 96.6 % (95-100); ABG PCO2 48.9 MM HG (35-48); ABG PO2 114.5 MM HG (80-95); ABG TCO2 19.4 MMOL/L (23-27)
[2017-12-09 19:14] LABS: ABG PH 7.182 (7.35-7.45)
[2017-12-09] MEDS ORDERED: SODIUM CHLORIDE 0.9% 1,000 ML IV ONE (19:32)
[2017-12-09] MEDS ORDERED: SODIUM BICARBONATE 50 MEQ/50 ML SYRINGE IV ONE (20:00)
[2017-12-09] MEDS ORDERED: SODIUM CHLORIDE 0.9% 1,000 ML IV SCH (20:00)
[2017-12-09] MEDS ORDERED: AMIODARONE 200 MG TABLET PER TUBE SCH (21:00)
[2017-12-09] MEDS ORDERED: PANTOPRAZOLE 40 MG VIAL IV SCH (21:00)
[2017-12-09] MEDS ORDERED: BUDESONIDE INH SCH (21:00)
[2017-12-09] MEDS ORDERED: NOREPINEPHRINE 4 MG/4 ML VIAL IV ONE (23:13)
[2017-12-09] MEDS ORDERED: DOPamine 800 MG/250 ML PREMIX IV ONE (23:14)
[2017-12-10 00:06] LABS: Basophils # 0.1 10*3/uL (0.0-0.2); Basophils % 0.4 % (0.0-0.8); Hematocrit 41.9 VOL% (35.7-47.0); Hemoglobin 12.9 GM/DL (12.0-16.0); Immature Granulocytes % 12.6 %; Immature Granulocytes Absolute 3.06 #; Lymphocytes # 0.8 10*3/uL (1.4-4.0); Lymphocytes % 3.2 % (21.3-54.2); Mean Corpuscular HGB Conc 30.8 GM/DL (32-36); Mean Corpuscular Hemoglobin 25 PG (27-34); Mean Corpuscular Volume 81.4 FL (87-102); Mean Platelet Volume 11.7 FL (9.6-12.0); Monocytes # 1.9 10*3/uL (0.11-0.8); Monocytes % 7.6 % (1.7-12.7); NRBC # 0.48 10*3/uL; Neutrophils # 18.6 10*3/uL (1.4-7.4); Neutrophils % 76.2 % (38.7-73.9); Platelet Count 203 T/CUMM (130-400); Red Blood Count 5.15 MC/CUMM (3.8-5.5); Red Cell Distribution Width 21.7 % (9.3-17.3); White Blood Count 24.4 T/CUMM (4-12)
[2017-12-10 00:06] LABS: ABG Base Excess -9.5 MMOL/L (-2.5-2.5); ABG HCO3 16.6 MMOL/L (20-26); ABG Oxygen Saturation 76.1 % (95-100); ABG PCO2 64.6 MM HG (35-48); ABG PO2 59.9 MM HG (80-95); ABG TCO2 19.7 MMOL/L (23-27)
[2017-12-10 00:08] LABS: ABG PH 7.131 (7.35-7.45)
[2017-12-10 00:30] LABS: Band Neutrophils 4 % (0-10); Lymphocytes 9 % (20-55); Nucleated Red Blood Cells 1 (0-5); Platelet Estimate Normal; Segmented Neutrophils 82 % (50-85); Total Cells Counted 100
[2017-12-10] MEDS ORDERED: SODIUM BICARB INJ 150 MEQ in STERILE WATER INJ 850 ML IV SCH (00:30)
[2017-12-10 00:34] LABS: Albumin 2.2 G/DL (3.4-5.0); Bilirubin,Total 2.2 MG/DL (0.2-1.0); CKMB % 3.9 %; Calcium 7.3 MG/DL (8.5-10.1); Osmolality,Calculated 293.6 MOS/KG (273-304); Total Protein 6.1 G/DL (6.4-8.3)
[2017-12-10 00:35] LABS: Troponin I 0.138 NG/ML (0.00-0.045)
[2017-12-10] MEDS ORDERED: DEXTROSE 50% 25 GM/50 ML VIAL IV ONE (00:37)
[2017-12-10 00:38] LABS: Potassium 7.1 MMOL/L (3.5-5.1)
[2017-12-10] MEDS ORDERED: DEXTROSE 50% 25 GM/50 ML VIAL IV PRN (00:43)
[2017-12-10] MEDS: DOPamine 800 MG/250 ML PREMIX IV PRN ×2 (01:05→03:46)
[2017-12-10] MEDS: NOREPINEPHRINE 8 MG in SODIUM CHLORIDE 0.9% 242 ML IV PRN ×2 (01:06→04:52)
[2017-12-10] MEDS ORDERED: LACTATED RINGERS IV ONE (01:26)
[2017-12-10] MEDS ORDERED: SODIUM CHLORIDE 0.9% 2,900 ML IV ONE ×4 (01:26→01:49)
[2017-12-10] MEDS: SODIUM POLYSTYRENE SULFATE 15 GM/60 ML BOTTLE PER TUBE SCH ×2 (01:26→08:19)
[2017-12-10] MEDS ORDERED: MEROPENEM 1,000 MG in SODIUM CHLORIDE 0.9% 100 ML IV SCH (01:30)
[2017-12-10] MEDS ORDERED: INSULIN REGULAR 100 UNIT/ML IV ONE (01:30)
[2017-12-10] MEDS ORDERED: GENTAMICIN INJ 160 MG in SODIUM CHLORIDE 0.9% 100 ML IV SCH (02:00)
[2017-12-10] MEDS ORDERED: VANCOMYCIN INJ 1,500 MG in SODIUM CHLORIDE 0.9% 500 ML IV ONE (02:30)
[2017-12-10 04:09] LABS: ABG Base Excess -16.6 MMOL/L (-2.5-2.5); ABG HCO3 16.4 MMOL/L (20-26); ABG Oxygen Saturation 59.7 % (95-100); ABG PO2 55.2 MM HG (80-95); ABG TCO2 18.7 MMOL/L (23-27)
[2017-12-10 04:11] LABS: ABG PH 6.945 (7.35-7.45)
[2017-12-10 04:12] LABS: ABG PCO2 77.1 MM HG (35-48)
[2017-12-10 04:32] VITALS: BP 75/45
[2017-12-10] MEDS ORDERED: metOLazone 5 MG TABLET PO SCH (09:00)
[2017-12-10] MEDS ORDERED: predniSONE 10 MG TABLET PO SCH (09:00)
[2017-12-10] MEDS ORDERED: ASPIRIN EC 81 MG TABLET PO SCH (09:00)
[2017-12-10] MEDS ORDERED: WARFARIN 5 MG TABLET PO SCH (18:00)
[2017-12-11] MEDS ORDERED: PNEUMOCOCCAL VACCINE (23 VALENT) 0.5 ML VIAL IM ONE (09:00)
[2017-12-12] MEDS ORDERED: VANCOMYCIN INJ 1,250 MG in SODIUM CHLORIDE 0.9% 250 ML IV SCH (02:00)
== END 2017-12-10 05:14 | disposition expired | DRG 720 ==
LOC: EDUNIT# → EDBD → N.ED 15:02 → N.EDINP 17:27 → N.ICU 18:05
PROVIDERS: ADMIT Internal Medicine; ATTEND Internal Medicine